=== PATIENT | female | born 1965 | race Caucasian/White ===

== ENCOUNTER 2018-05-23 12:06 | Day surgery (SDC) | payer OTHER ==
[2018-05-23] MEDS ORDERED: FENTAnyl 50 MCG/ML VIAL ×2 (14:01→14:42)
[2018-05-23] MEDS ORDERED: MIDAZOLAM 1 MG/ML 2 ML INJ ×3 (14:01→14:42)
== END 2018-05-23 16:43 | disposition home or self-care (01) ==
LOC: GIL 12:06
DX: Z12.11 Encounter for screening for malignant neoplasm of colon (principal); D12.2 Benign neoplasm of ascending colon
CPT/HCPCS: 45380; 88305